=== PATIENT | male | born 1945 | race Two or more races ===

== ENCOUNTER 2018-01-18 14:08 | Outpatient (CLI) | payer OTHER ==
[~2018-01-18 14:08] MED LIST: ACARBOSE25 MG PO; DIGOXIN0.125 MG/2 PO; ENALAPRIL MALEAT5 MG PO; FOLIC ACID1 MG PO; ISORDIL10 MG PO; LOPID; [UNRECOGNIZED DRUG - OTHER]
== END 2018-01-18 15:28 | disposition home or self-care (01) ==
LOC: RAD 14:08
DX: I50.32 Chronic diastolic (congestive) heart failure (principal); R06.09 Other forms of dyspnea

== ENCOUNTER 2019-02-27 16:50 | Outpatient (CLI) | payer OTHER | END 2019-02-27 18:52 | disposition home or self-care (01) | LOC: LAB 16:50 | DX: B35.1 Tinea unguium (principal) ==

== ENCOUNTER 2019-03-02 14:52 | Outpatient (CLI) | payer OTHER | END 2019-03-02 16:00 | disposition home or self-care (01) | LOC: NUCLEAR 14:52 | DX: I87.2 Venous insufficiency (chronic) (peripheral) (principal) ==

== ENCOUNTER → 2019-03-02 | Outpatient (CLI) | payer OTHER | END | disposition home or self-care (01) | LOC: RAD 15:44 | DX: M12.841 Other specific arthropathies, not elsewhere classified, right hand (principal); M12.842 Other specific arthropathies, not elsewhere classified, left hand ==

== ENCOUNTER 2019-05-09 08:12 | Outpatient (CLI) | payer OTHER | END 2019-05-09 08:23 | disposition home or self-care (01) | LOC: LAB 08:12 | DX: I10 Essential (primary) hypertension (principal); E11.9 Type 2 diabetes mellitus without complications ==

== ENCOUNTER 2019-05-09 09:38 | Outpatient (CLI) | payer OTHER | END 2019-05-09 10:47 | disposition home or self-care (01) | LOC: TOM 09:38 | DX: R13.19 Other dysphagia (principal) | CPT/HCPCS: 70491; Q9965 ==

== ENCOUNTER 2019-05-10 15:59 | Outpatient (CLI) | payer OTHER ==
[~2019-05-10] VITALS: Ht 167.6 cm; Wt 81.2 kg
== END 2019-05-10 16:45 | disposition home or self-care (01) ==
LOC: OFIC 805 15:59
DX: H92.03 Otalgia, bilateral (principal); R22.1 Localized swelling, mass and lump, neck; D48.9 Neoplasm of uncertain behavior, unspecified; D48.7 Neoplasm of uncertain behavior of other specified sites

== ENCOUNTER 2019-05-14 07:24 | Outpatient (CLI) | payer OTHER | END 2019-05-14 07:30 | disposition home or self-care (01) | LOC: SONOGRAMA 07:24 | DX: R22.2 Localized swelling, mass and lump, trunk (principal) ==

== ENCOUNTER 2019-05-31 16:18 | Outpatient (CLI) | payer OTHER ==
[~2019-05-31] VITALS: Ht 152.4 cm; Wt 81.2 kg
== END 2019-05-31 17:18 | disposition home or self-care (01) ==
LOC: OFIC 805 16:18
DX: R22.1 Localized swelling, mass and lump, neck (principal); H92.03 Otalgia, bilateral; D44.6 Neoplasm of uncertain behavior of carotid body
CPT/HCPCS: 99213; G0463

== ENCOUNTER 2019-08-06 08:11 | Outpatient (CLI) | payer OTHER | END 2019-08-06 15:00 | disposition home or self-care (01) | LOC: LAB 08:11 | DX: C09.0 Malignant neoplasm of tonsillar fossa (principal) ==

== ENCOUNTER → 2019-08-25 15:26 | Outpatient (CLI) | payer OTHER | END | disposition home or self-care (01) | LOC: LAB 13:12 | DX: C09.0 Malignant neoplasm of tonsillar fossa (principal) ==

== ENCOUNTER 2019-09-04 07:06 | Outpatient (CLI) | payer OTHER | END 2019-09-04 14:26 | disposition home or self-care (01) | LOC: LAB 07:06 | DX: C09.9 Malignant neoplasm of tonsil, unspecified (principal) ==

== ENCOUNTER → 2019-09-20 07:29 | Outpatient (CLI) | payer OTHER | END | disposition home or self-care (01) | LOC: LAB 07:29 | DX: C09.0 Malignant neoplasm of tonsillar fossa (principal) ==

== ENCOUNTER → 2019-09-24 07:54 | Outpatient (CLI) | payer OTHER | END | disposition home or self-care (01) | LOC: LAB 07:54 | DX: C09.0 Malignant neoplasm of tonsillar fossa (principal) ==

== ENCOUNTER → 2019-09-27 07:39 | Outpatient (CLI) | payer OTHER | END | disposition home or self-care (01) | LOC: LAB 07:39 | DX: C09.0 Malignant neoplasm of tonsillar fossa (principal) ==

== ENCOUNTER → 2019-10-04 09:20 | Outpatient (CLI) | payer OTHER | END | disposition home or self-care (01) | LOC: LAB 09:20 | PROVIDERS: ATTEND Internal Medicine Cardiovascular Disease | DX: E03.8 Other specified hypothyroidism (principal); I10 Essential (primary) hypertension; E11.9 Type 2 diabetes mellitus without complications; E78.2 Mixed hyperlipidemia ==

== ENCOUNTER 2020-01-26 09:35 | Outpatient (CLI) | payer OTHER | END 2020-01-26 09:39 | disposition home or self-care (01) | LOC: LAB 09:35 | PROVIDERS: ATTEND Internal Medicine Cardiovascular Disease | DX: N40.0 Benign prostatic hyperplasia without lower urinary tract symptoms (principal); I10 Essential (primary) hypertension; E11.9 Type 2 diabetes mellitus without complications; E03.8 Other specified hypothyroidism; E78.2 Mixed hyperlipidemia; Z12.11 Encounter for screening for malignant neoplasm of colon ==

== ENCOUNTER → 2020-01-28 07:45 | Outpatient (CLI) | payer OTHER | END | disposition home or self-care (01) | LOC: LAB 07:45 | PROVIDERS: ATTEND Internal Medicine Cardiovascular Disease | DX: E03.8 Other specified hypothyroidism (principal); N40.0 Benign prostatic hyperplasia without lower urinary tract symptoms; Z12.11 Encounter for screening for malignant neoplasm of colon; I10 Essential (primary) hypertension; E11.9 Type 2 diabetes mellitus without complications; E78.2 Mixed hyperlipidemia ==

== ENCOUNTER 2020-03-06 08:23 | Outpatient (CLI) | payer OTHER | END 2020-03-06 09:11 | disposition home or self-care (01) | LOC: NUCLEAR 08:23 | DX: C09.0 Malignant neoplasm of tonsillar fossa (principal) | CPT/HCPCS: 78816; A9552 ==

== ENCOUNTER → 2020-04-03 07:23 | Outpatient (CLI) | payer OTHER | END | disposition home or self-care (01) | LOC: LAB 07:23 | DX: Z03.818 Encounter for observation for suspected exposure to other biological agents ruled out (principal) ==

== ENCOUNTER → 2020-04-08 | Outpatient (CLI) | payer OTHER | END | disposition home or self-care (01) | LOC: OFIC 805 13:00 | PROVIDERS: ATTEND Otolaryngology | DX: H92.01 Otalgia, right ear (principal); R22.1 Localized swelling, mass and lump, neck; J35.1 Hypertrophy of tonsils; C44.42 Squamous cell carcinoma of skin of scalp and neck ==

== ENCOUNTER 2020-04-29 08:27 | Outpatient (CLI) | payer OTHER | END 2020-04-29 08:35 | disposition home or self-care (01) | LOC: LAB 08:27 | DX: Z03.818 Encounter for observation for suspected exposure to other biological agents ruled out (principal) ==

== ENCOUNTER 2020-05-22 13:08 | Outpatient (CLI) | payer OTHER | END 2020-05-22 13:58 | disposition home or self-care (01) | LOC: OFIC 805 13:08 | PROVIDERS: ATTEND Otolaryngology | DX: R22.1 Localized swelling, mass and lump, neck (principal); H92.01 Otalgia, right ear; D48.7 Neoplasm of uncertain behavior of other specified sites ==

== ENCOUNTER → 2020-06-16 17:20 | Outpatient (CLI) | payer OTHER | END | disposition home or self-care (01) | LOC: PPH VACUNA 17:20 | PROVIDERS: ATTEND Emergency Medicine Pediatric Emergency Medicine | DX: Z23 Encounter for immunization (principal) ==

== ENCOUNTER 2021-01-27 05:30 | Emergency (ER) | payer OTHER ==
[~2021-01-27] VITALS: Ht 170.2 cm; Wt 77.1 kg
== END 2021-01-27 08:35 | disposition home or self-care (01) ==
LOC: ER 05:30
DX: R21 Rash and other nonspecific skin eruption (principal)

== ENCOUNTER 2021-04-07 07:41 | Outpatient (CLI) | payer OTHER | END 2021-04-07 07:42 | disposition home or self-care (01) | LOC: TOM 07:41 | PROVIDERS: ATTEND Surgery Surgical Oncology | DX: C09.0 Malignant neoplasm of tonsillar fossa (principal) | CPT/HCPCS: 70491; 71260; Q9965 ==

== ENCOUNTER 2022-03-30 11:16 | Outpatient (CLI) | payer OTHER | END 2022-03-30 11:17 | disposition home or self-care (01) | LOC: LAB 11:16 | PROVIDERS: ATTEND Radiology Diagnostic Radiology | DX: C09.0 Malignant neoplasm of tonsillar fossa (principal); R91.1 Solitary pulmonary nodule ==

== ENCOUNTER 2022-03-31 06:50 | Outpatient (CLI) | payer OTHER | END 2022-03-31 07:10 | disposition home or self-care (01) | LOC: TOM 06:50 | PROVIDERS: ATTEND Internal Medicine Cardiovascular Disease | DX: C09.0 Malignant neoplasm of tonsillar fossa (principal) ==

== ENCOUNTER 2022-06-12 21:09 | Emergency (ER) | payer OTHER ==
[~2022-06-12] VITALS: Ht 175.3 cm; Wt 74.8 kg
== END 2022-06-12 22:54 | disposition home or self-care (01) ==
LOC: ER 21:09
DX: B07.8 Other viral warts (principal); E88.81 Metabolic syndrome and other insulin resistance; E78.00 Pure hypercholesterolemia, unspecified; E11.9 Type 2 diabetes mellitus without complications; I10 Essential (primary) hypertension; Z85.89 Personal history of malignant neoplasm of other organs and systems

== ENCOUNTER → 2022-11-03 10:40 | Outpatient (CLI) | payer OTHER | END | disposition home or self-care (01) | LOC: LAB 10:40 | PROVIDERS: ATTEND Surgery Surgical Oncology | DX: C09.0 Malignant neoplasm of tonsillar fossa (principal) ==

== ENCOUNTER 2022-11-11 06:52 | Outpatient (CLI) | payer OTHER | END 2022-11-11 15:08 | disposition home or self-care (01) | LOC: TOM 06:52 | PROVIDERS: ATTEND Surgery Surgical Oncology | DX: C09.0 Malignant neoplasm of tonsillar fossa (principal) | CPT/HCPCS: 70491; Q9965 ==

== ENCOUNTER → 2022-12-03 09:26 | Outpatient (CLI) | payer OTHER | END | disposition home or self-care (01) | LOC: LAB 09:26 | PROVIDERS: ATTEND Internal Medicine Cardiovascular Disease | DX: E78.2 Mixed hyperlipidemia (principal); E03.9 Hypothyroidism, unspecified; E11.9 Type 2 diabetes mellitus without complications; I10 Essential (primary) hypertension ==

== ENCOUNTER 2023-02-21 10:14 | Outpatient (CLI) | payer OTHER | END 2023-02-21 10:24 | disposition home or self-care (01) | LOC: SONOGRAMA 10:14 | PROVIDERS: ATTEND Internal Medicine Gastroenterology | DX: R10.9 Unspecified abdominal pain (principal) ==

== ENCOUNTER → 2023-03-30 07:05 | Outpatient (CLI) | payer OTHER | END | disposition home or self-care (01) | LOC: NUCLEAR 07:05 | PROVIDERS: ATTEND Internal Medicine Gastroenterology | DX: K82.9 Disease of gallbladder, unspecified (principal) | CPT/HCPCS: 78227; A9537; J2805 ==

== ENCOUNTER 2024-01-03 07:54 | Outpatient (CLI) | payer OTHER | END 2024-01-03 07:56 | disposition home or self-care (01) | LOC: NUCLEAR 07:54 | PROVIDERS: ATTEND Surgery Surgical Oncology | DX: C09.0 Malignant neoplasm of tonsillar fossa (principal) | CPT/HCPCS: 78815; A9552 ==

== ENCOUNTER 2024-01-23 08:26 | Outpatient (CLI) | payer OTHER | END 2024-01-23 08:29 | disposition home or self-care (01) | LOC: SONOGRAMA 08:26 | DX: C09.0 Malignant neoplasm of tonsillar fossa (principal) ==